=== PATIENT | female | born 1990 | race Caucasian/White ===

== ENCOUNTER 2023-04-13 10:21 | Outpatient (CLI) | payer OTHER | END 2023-04-13 10:27 | disposition home or self-care (01) | LOC: LAB 10:21 | PROVIDERS: ATTEND Internal Medicine | DX: U07.1 COVID-19 (principal) ==

== ENCOUNTER 2024-04-14 13:09 | Outpatient (CLI) | payer OTHER | END 2024-04-14 13:20 | disposition home or self-care (01) | LOC: SONOGRAMA 13:09 | PROVIDERS: ATTEND Otolaryngology | DX: R22.1 Localized swelling, mass and lump, neck (principal) ==

== ENCOUNTER 2024-06-20 11:08 | Outpatient (CLI) | payer OTHER | END 2024-06-20 11:12 | disposition home or self-care (01) | LOC: LAB 11:08 | PROVIDERS: ATTEND Preventive Medicine Occupational Medicine | DX: J11.1 Influenza due to unidentified influenza virus with other respiratory manifestations (principal); Z20.828 Contact with and (suspected) exposure to other viral communicable diseases ==

== ENCOUNTER 2024-07-28 01:35 | Outpatient (CLI) | payer OTHER | END 2024-07-28 02:00 | disposition home or self-care (01) | LOC: PPH VACUNA 01:35 | PROVIDERS: ATTEND Emergency Medicine Pediatric Emergency Medicine | DX: Z23 Encounter for immunization (principal) ==

== ENCOUNTER → 2024-08-15 12:12 | Outpatient (CLI) | payer OTHER | END | disposition home or self-care (01) | LOC: LAB 12:12 | PROVIDERS: ATTEND Preventive Medicine Occupational Medicine | DX: J11.1 Influenza due to unidentified influenza virus with other respiratory manifestations (principal); Z20.828 Contact with and (suspected) exposure to other viral communicable diseases ==

== ENCOUNTER 2024-08-26 14:55 | Outpatient (CLI) | payer OTHER | END 2024-08-26 20:20 | disposition home or self-care (01) | LOC: LAB 14:55 | PROVIDERS: ATTEND Internal Medicine Hematology & Oncology | DX: Z11.3 Encounter for screening for infections with a predominantly sexual mode of transmission (principal); B17.10 Acute hepatitis C without hepatic coma ==

== ENCOUNTER 2024-11-22 04:04 | Emergency (ER) | payer OTHER ==
[~2024-11-22] VITALS: Ht 160 cm; Wt 63.5 kg
[2024-11-22 06:59] LABS: HEMATOCRIT 43.2 % (36.0-45.00); HEMOGLOBIN 14.8 g/dL (12.0-15.00); MEAN CELL VOLUME 91.1 fL (80.00-100.00); MEAN CORPUSCULAR HEMOGLOBIN 31.2 pg (27.00-32.0); MEAN CORPUSCULAR HGB CONC 34.2 g/dl (32.0-36.0); PLATELET COUNT 207 K/uL (150-450); RED BLOOD COUNT 4.74 M/uL (4.00-6.00); RED CELL DISTRIBUTION WIDTH 12.4 % (11.5-14.5)
[2024-11-22] MEDS ORDERED: ZOFRAN8 MG PO (08:15)
[2024-11-22] MEDS ORDERED: LEVALBUTER0.63 MG/3 IH (08:15)
[2024-11-22] MEDS ORDERED: BENZONATATE200 M1 PO (08:15)
[2024-11-22] MEDS ORDERED: AZITHROMYCIN500 MG PO (08:15)
[2024-11-22] MEDS ORDERED: PEPCID AC20 MG PO (08:15)
[2024-11-22] MEDS ORDERED: SINGULAIR10 MG PO (08:19)
== END 2024-11-22 08:31 | disposition home or self-care (01) ==
LOC: ER 04:06 → EMR PED 04:08 → ER 08:31
DX: J06.9 Acute upper respiratory infection, unspecified (principal); Z20.822 Contact with and (suspected) exposure to COVID-19

== ENCOUNTER 2025-01-23 08:45 | Outpatient (CLI) | payer OTHER ==
[~2025-01-23 08:45] MED LIST: AZITHROMYCIN500 MG PO; BENZONATATE200 M1 PO; LEVALBUTER0.63 MG/3 IH; PEPCID AC20 MG PO; SINGULAIR10 MG PO; ZOFRAN8 MG PO
== END 2025-01-23 08:50 | disposition home or self-care (01) ==
LOC: LAB 08:45
PROVIDERS: ATTEND Emergency Medicine
DX: J11.1 Influenza due to unidentified influenza virus with other respiratory manifestations (principal); Z20.828 Contact with and (suspected) exposure to other viral communicable diseases

== ENCOUNTER 2025-02-12 11:51 | Emergency (ER) | payer OTHER ==
[~2025-02-12] VITALS: Ht 160 cm; Wt 61.2 kg
[2025-02-12] MEDS ORDERED: TRAMADOL HCL 50 MG TABLET PO STA (16:52)
[2025-02-12 18:19] LABS: HEMATOCRIT 43.8 % (36.0-45.00); HEMOGLOBIN 14.9 g/dL (12.0-15.00); MEAN CELL VOLUME 91.6 fL (80.00-100.00); MEAN CORPUSCULAR HEMOGLOBIN 31.2 pg (27.00-32.0); MEAN CORPUSCULAR HGB CONC 34.1 g/dl (32.0-36.0); PLATELET COUNT 252 K/uL (150-450); RED BLOOD COUNT 4.78 M/uL (4.00-6.00); RED CELL DISTRIBUTION WIDTH 12.7 % (11.5-14.5)
[2025-02-12 18:30] LABS: PH,URINE 6.5 (5.0-8.0); URINE APPEARANCE Clear; URINE BILIRRUBIN Negative (NEGATIVE); URINE COLOR Yellow; URINE GLUCOSE Negative (NEGATIVE); URINE KETONE Negative (NEGATIVE); URINE LEUKOCYTE Negative; URINE NITRATE Negative; URINE PROTEIN Negative (NEGATIVE); URINE UROBILINOGEN 0.2 E.U./dl
[2025-02-12 18:33] LABS: URINE BACTERIA 1338.8 uL (0.0-1933); URINE EPITHELIAL CELLS 28.1 uL (0.0-38.8); URINE RBC 11.7 uL (0.0-20.8); URINE WBC 9.4 uL (0.0-23.2)
[2025-02-12 18:34] LABS: CALCIUM 9.4 mg/dL (8.5-10.1); CREATININE SERUM 0.88 mg/dL (0.55-1.02); GFR 73.55; POTASSIUM 3.6 mEq/L (3.5-5.1)
[2025-02-12 18:43] LABS: URINE BLOOD TRACES
== END 2025-02-12 19:50 | disposition home or self-care (01) ==
LOC: ER 11:52
DX: M62.830 Muscle spasm of back (principal); M54.50 Low back pain, unspecified